=== PATIENT | female | born 1975 | race African-American/Black ===

== ENCOUNTER 2025-01-30 20:46 | Emergency (ER) | payer OTHER ==
[~2025-01-30] VITALS: Ht 165.1 cm; Wt 114.0 kg
[2025-01-30 20:51] VITALS: O2SAT 99
[2025-01-30] MEDS ORDERED: BACITRACIN ZINC OINT UDPKT TOP ONE (21:30)
[2025-01-30] MEDS ORDERED: LIDOCAINE HCL/EPINEPHRINE 1%-EPI 1:100,000 20ML VIAL INFIL ONE (21:30)
[2025-01-30] MEDS: TETANUS, DIPHTHERIA, PERTUSSIS VAC/PF 0.5ML (>10YR OLD) IM ONE (22:07)
[2025-01-30] MEDS ORDERED: ACETAMINOPHEN 325MG TABLET PO ONE (22:30)
[2025-01-30] MEDS ORDERED: ACET-2708 MT (23:35)
[2025-01-31] MEDS: ACETAMINOPHEN 325MG TABLET PO NR (00:17)
[2025-01-31 00:28] VITALS: BP 138/74; PULSE 83; RESP 19; TEMP 36.6; O2SAT 97
== END 2025-01-31 00:29 | disposition home or self-care (01) ==
LOC: ER 20:46
DX: S01.01XA Laceration without foreign body of scalp, initial encounter (principal); I10 Essential (primary) hypertension; W19.XXXA Unspecified fall, initial encounter; Y93.89 Activity, other specified; Y92.89 Other specified places as the place of occurrence of the external cause; Y99.8 Other external cause status; R51.9 Headache, unspecified
CPT/HCPCS: 70450; 90715; 12004; 90471; 99285; J2004; Z7610 ×2